=== PATIENT | female | born 1955 | race Two or more races ===

== ENCOUNTER 2021-01-24 21:29 | Emergency (ER) | payer MEDICARE, OTHER ==
[~2021-01-24] VITALS: Ht 160 cm; Wt 63.5 kg
--- NOTE | 2021-01-24 21:40 | NUR ---
BIBRA 860 FROM HOME FOR C/O SEVERE H/A, N/V AND DIZZINESS X 3-4 HRS. PT HAD R EYE SURGERY 2 DAYS AGO AT A CLINIC. NO NEURO DEFECITS NOTED. BREATHING IS EVEN AND PLACED ON MONITOR AND PULSE OX AND ALL V/S STABLE. WAS AT THE BEDSIDE FOR EVAL.
[2021-01-24] MEDS ORDERED: diphenhydrAMINE HCL 50 MG/ML VIAL IV ONE ×2 (22:00→23:30)
[2021-01-24] MEDS ORDERED: ONDANSETRON HCL/PF 4 MG/2 ML VIAL IVP ONE (22:00)
[2021-01-24] MEDS ORDERED: IV NS 0.9% 1,000 ML BAG IV ONE ×2 (22:00→23:30)
[2021-01-24] MEDS ORDERED: MORPHINE SULFATE INJ 2 MG/ML DISP.SYRIN IV ONE (22:00)
[2021-01-24] MEDS ORDERED: diphenhydrAMINE HCL 50 MG/ML VIAL ONE ×2 (22:07→23:36)
[2021-01-24] MEDS ORDERED: ONDANSETRON HCL/PF 4 MG/2 ML VIAL ONE (22:07)
[2021-01-24] MEDS ORDERED: MORPHINE SULFATE INJ 4 MG/ML DISP.SYRIN ONE (22:08)
[2021-01-24 22:18] LABS: BASOPHILS % (AUTO) 0.4 % (0.0-2.0); EOSINOPHILS % (AUTO) 0.6 % (0.0-6.0); HEMATOCRIT 37 % (33-45); HEMOGLOBIN 12.5 g/dL (11.5-14.8); LYMPHOCYTES # (AUTO) 1.6 K/uL (0.8-4.8); LYMPHOCYTES % (AUTO) 15.4 % (20.0-44.0); MEAN CORPUSCULAR HGB CONC 34 g/dl (31.0-36.0); MEAN CORPUSCULAR VOLUME 95 fL (82-100); MONOCYTES # (AUTO) 0.8 K/uL (0.1-1.30); MONOCYTES % (AUTO) 7.5 % (2.0-12.0); NEUTROPHILS # (AUTO) 8.1 K/uL (1.8-8.9); NEUTROPHILS % (AUTO) 76.1 % (43.0-81.0); PLATELET COUNT (AUTO) 270 K/uL (150-450); RED BLOOD CELL COUNT(AUTO) 3.93 MIL/uL (4.0-5.2); WHITE BLOOD COUNT (AUTO) 10.7 K/uL (4.3-11.0)
[2021-01-24 22:36] LABS: CALCIUM, SERUM 8.7 mg/dL (8.5-10.1); CREATININE 1.7 mg/dL (0.6-1.3); POTASSIUM 4.1 mmol/L (3.5-5.1)
[2021-01-24 22:42] LABS: ALBUMIN 4.1 g/dL (3.4-5.0); BILIRUBIN,DIRECT 0.1 mg/dL (0.0-0.2); BILIRUBIN,TOTAL 0.4 mg/dL (0.2-1.0); TOTAL PROTEIN, SERUM 9.2 g/dL (6.4-8.2)
--- NOTE | 2021-01-24 23:14 | NUR ---
PT BEING TAKEN TO CT
[2021-01-25] MEDS ORDERED: MORPHINE SULFATE INJ 4 MG/ML DISP.SYRIN ONE (00:16)
[2021-01-25] MEDS ORDERED: MORPHINE SULFATE INJ 2 MG/ML DISP.SYRIN IV ONE (00:30)
[2021-01-25] MEDS ORDERED: TRAM50TA2 PO (00:49)
[2021-01-25] MEDS ORDERED: TRAMADOL HCL 50 MG TABLET ONE (01:00)
[2021-01-25] MEDS ORDERED: TRAMADOL HCL 50 MG TABLET PO ONE (01:00)
--- NOTE | 2021-01-25 01:00 | NUR ---
IV removed. Catheter intact and site benign. Pressure and 4x4 applied to site. No bleeding noted.
--- NOTE | 2021-01-25 01:05 | NUR ---
Patient discharged to home in stable condition. Written and verbal after care instructions given. Patient verbalizes understanding of instruction.
[2021-01-25 01:12] VITALS: BP 112/61
== END 2021-01-25 01:05 | disposition home or self-care (01) ==
LOC: ER 21:31
DX: R51.9 Headache, unspecified (principal); E86.0 Dehydration; F17.200 Nicotine dependence, unspecified, uncomplicated
CPT/HCPCS: 36415; 70450; 70481; 71045; 80048; 80076; 82962; 83605; 85025; 85652; 85730; 87040 ×2; 93005; 96361; 96374; 96375; 96376 ×2; 99285; J1200 ×2; J2270 ×2; J2405; J7030 ×2